=== PATIENT | female | born 1990 | race Caucasian/White ===

== ENCOUNTER → 2025-08-16 13:09 | Outpatient (CLI) | payer OTHER, SELFPAY ==
--- NOTE | 2025-08-16 13:14 | DI.MRI.S_ITS ---
PROCEDURE: MR CERVICAL SPINE WO CON INDICATIONS: pain TECHNIQUE: Noncontrast sagittal T1 spin echo and T2 fast spin echo, sagittal STIR, foraminal oblique sagittal T2 fast spin echo, and axial gradient echo or T2 fast spin echo through the cervical spine. COMPARISON: None. FINDINGS: Image quality: Excellent. Alignment and Curvature: Loss of normal cervical lordosis. Bone Marrow: Marrow demonstrates normal overall signal. Mild reactive signal throughout the endplates of the cervical and upper thoracic spine. Spinal Cord: Visualized spinal cord has normal size and signal. No cerebellar tonsillar herniation. Paraspinous Soft Tissues: No paravertebral masses. Prevertebral soft tissues are normal in thickness. C2-C3: Normal appearance. C3-C4: Mild disc desiccation and diffuse disc bulge. Mild canal stenosis. No foraminal stenosis C4-C5: Mild disc desiccation and diffuse disc bulge. Mild facet and uncovertebral hypertrophy. Mild canal stenosis. Mild bilateral foraminal stenosis. C5-C6: Mild disc desiccation and diffuse disc bulge. Mild facet and uncovertebral hypertrophy. Mild canal stenosis. Mild bilateral foraminal stenosis C6-C7: Mild disc desiccation and diffuse disc bulge with superimposed right paracentral protrusion. Mild facet and uncovertebral hypertrophy. Moderate canal stenosis. Minimal right cord flattening. Mild bilateral foraminal stenosis. C7-T1: Normal appearance. IMPRESSION: 1. Multilevel degenerative disc and facet disease, as well as uncovertebral hypertrophy. 2. Multilevel canal stenoses, worst at C6-C7 where there is minimal cord flattening. 3. Mild multilevel foraminal stenoses. Dictated by: Erlin Mauricio M.D. on 08/18/2025 at 12:38 Approved by: Erlin Mauricio M.D. on 08/18/2025 at 12:40
== END ==
LOC: MRI 13:12
DX: M50.11 Cervical disc disorder with radiculopathy, high cervical region (principal); M47.22 Other spondylosis with radiculopathy, cervical region; M48.02 Spinal stenosis, cervical region
CPT/HCPCS: 72141